=== PATIENT | male | born 1960 | race Hispanic/Latino ===

== ENCOUNTER 2020-05-28 17:53 | Emergency (ER) | payer OTHER ==
[~2020-05-28] VITALS: Ht 165.1 cm; Wt 68.0 kg
[2020-05-28] MEDS ORDERED: GUAIFENESIN/DEXTROMETHORPHAN LIQD 5 ML UDC PO PRN (18:15)
[2020-05-28] MEDS ORDERED: GUAIFENESIN/DEXTROMETHORPHAN LIQD 5 ML UDC ONE (18:24)
[2020-05-28] MEDS ORDERED: ACETAMINOPHEN 325 MG TAB PO ONE (18:45)
== END 2020-05-28 20:30 | disposition home or self-care (01) ==
LOC: ER 18:21
DX: U07.1 COVID-19 (principal); J18.9 Pneumonia, unspecified organism; R50.9 Fever, unspecified; R05 Cough
CPT/HCPCS: 71045; 93005; 99284; U0002

== ENCOUNTER 2020-06-02 11:15 | Emergency (ER) | payer OTHER ==
[~2020-06-02] VITALS: Ht 165.1 cm; Wt 68.0 kg
[2020-06-02 12:08] LABS: BASOPHILS % 0.4 % (0.0-1.0); EOSINOPHILS % 0.1 % (0.0-6.0); HEMATOCRIT 44.7 % (38.2-49.6); HEMOGLOBIN 14.6 g/dL (14.0-18.0); MEAN CORPUSCULAR HGB CONC 32.7 g/dL (31-35); MEAN CORPUSCULAR VOLUME 82.6 fL (81-99); MONOCYTES # (AUTO) 0.4 (0.2-0.8); MONOCYTES % 4.8 % (4.4-11.3); NEUTROPHILS # (AUTO) 6.1 (2.1-6.9); NEUTROPHILS % 81.2 % (38.7-80.0); PLATELET COUNT 330 x10e3/uL (140-360); RED BLOOD COUNT 5.41 x10e6/uL (4.3-5.7); RED CELL DISTRIBUTION WIDTH 13.2 % (11.7-14.4)
[2020-06-02 12:23] LABS: CLARITY,URINE CLEAR (CLEAR); COLOR,URINE YELLOW (YELLOW); LEUKOCYTE ESTERASE ,URINE NEGATIVE (NEGATIVE); NITRITE,URINE NEGATIVE (NEGATIVE)
[2020-06-02 12:24] LABS: BACTERIA,URINE RARE /HPF; EPITHELIAL CELLS,URINE FEW /LPF; KETONES,URINE 1+ (NEGATIVE); PROTEIN,URINE DIPSTICK 1+ (NEGATIVE); RBC,URINE 0-5 /HPF (0-5); URINE UROBILINOGEN 1 mg/dL (0.2 - 1); WBC,URINE (MAN) 0-5 /HPF (0-5)
[2020-06-02 12:26] LABS: ALANINE AMINOTRANSFERASE 72 IU/L (0-55); ALBUMIN 2.4 g/dL (3.5-5.0); ALBUMIN/GLOBULIN RATIO 0.6 (0.8-2.0); ALKALINE PHOSPHATASE 68 IU/L (40-150); ANION GAP 14.8 mmol/L (8-16); BLOOD UREA NITROGEN 10 mg/dL (7-26); BUN/CREATININE RATIO 11 (6-25); CALCIUM 8.3 mg/dL (8.4-10.2); CARBON DIOXIDE 26 mmol/L (22-29); CHLORIDE 96 mmol/L (98-107); CREATININE, SERUM 0.92 mg/dL (0.72-1.25); EST GLOMERULAR FILTRATION RATE > 60 ML/MIN (60-); GLUCOSE 149 mg/dL (74-118); POTASSIUM 3.8 mmol/L (3.5-5.1); SODIUM 133 mmol/L (136-145)
== END 2020-06-02 14:43 | disposition home or self-care (01) ==
LOC: ER 11:24
DX: M54.5 Low back pain (principal); R30.0 Dysuria
CPT/HCPCS: 36415; 71045; 80053; 81001; 85025; 87086; 99284